=== PATIENT | female | born 1940 | race Caucasian/White ===

== ENCOUNTER 2018-07-02 11:27 | Outpatient (CLI) | payer MEDICARE, OTHER | END 2018-07-02 11:28 | disposition short-term general hospital (02) | LOC: EMS 11:27 | PROVIDERS: ATTEND Surgery | DX: R29.6 Repeated falls (principal); R41.0 Disorientation, unspecified; R53.1 Weakness | CPT/HCPCS: A0425; A0429 ==

== ENCOUNTER 2018-10-05 16:54 | Outpatient (CLI) | payer MEDICARE, OTHER | END 2018-10-05 16:55 | disposition critical access hospital (66) | LOC: EMS 16:54 | PROVIDERS: ATTEND Surgery | DX: M25.552 Pain in left hip (principal); W18.30XA Fall on same level, unspecified, initial encounter; Y93.01 Activity, walking, marching and hiking; Y92.099 Unspecified place in other non-institutional residence as the place of occurrence of the external cause | CPT/HCPCS: A0425; A0429 ==

== ENCOUNTER 2018-10-05 17:20 | Inpatient (IN) | payer MEDICARE, OTHER ==
--- NOTE | 2018-10-05 17:59 | ED Physician Documentation ---
PD HPI LOWER EXT INJURY - Stated complaint Stated Complaint: GLF - Chief complaint Chief Complaint: Ext Problem - History obtained from History obtained from: EMS - History of Present Illness PD HPI LOW EXT INJURY LOCATION: Other (This is a very demented 78-year-old woman who presents from her home after reported fall with potential left hip injury. No history is available from the patient due to dementia.) Review of Systems Unable to obtain: Dementia PD PAST MEDICAL HISTORY - Past Medical History Past Medical History: Yes Neuro: Dementia - Present Medications Home Medications: Ambulatory Orders Medication Instructions Recorded Confirmed Cholecalciferol (Vitamin D3) 1 tab ORAL DAILY 10/05/18 10/05/18 [Vitamin D3] Cilostazol [Pletal] 1 tab ORAL BID 10/05/18 10/05/18 Citalopram [CeleXA] 10 mg ORAL DAILY 10/05/18 10/05/18 Cyanocobalamin (Vitamin B-12) 1,000 mg ORAL DAILY 10/05/18 10/05/18 [Vitamin B-12] Escitalopram Oxalate [Lexapro] 1 tab ORAL DAILY 10/05/18 10/05/18 Nicotine [Nicoderm Cq] 14 mg 10/05/18 QUEtiapine [SEROquel] 25 mg ORAL DAILY 10/05/18 10/05/18 Senna [Senokot] 1 tab ORAL DAILY 10/05/18 10/05/18 risperiDONE [Risperdal] 1 tab ORAL DAILY 10/05/18 10/05/18 - Allergies Allergies/Adverse Reactions: Allergies Allergy/AdvReac Type Severity Reaction Status Date / Time aspirin Allergy Unknown Verified 10/05/18 17:43 lisinopril Allergy Unknown Verified 10/05/18 17:43 rivastigmine [From Exelon] Allergy Unknown Verified 10/05/18 17:43 PD ED PE NORMAL - Vitals Vital signs reviewed: Yes - General General: Other (She is slightly agitated, oriented to person only. She has an ecchymosis under the left eye which is several days old per the notes that accompany her.) - Neck Neck: Supple, no meningeal sign, No bony TTP - Cardiac Cardiac: RRR, No murmur - Respiratory Respiratory: No respiratory distress, Clear bilaterally - Abdomen Abdomen: Non tender - Back Back: No CVA TTP, No spinal TTP - Derm Derm: Normal color, Warm and dry - Extremities Extremities: Other (I am unable to elicit any tenderness or limited range of motion of either hip) - Psych Psych: Normal mood, Normal affect Results - Vitals Vitals: Vital Signs - 24 hr 10/05/18 17:15 Temperature 36.4 C L Heart Rate 118 H Respiratory 16 Rate Blood Pressure 172/110 H O2 Saturation 100 Oxygen O2 Source Room air - Labs Labs: Laboratory Tests 10/05/18 10/05/18 10/05/18 19:02 19:02 19:02 WBC 10.5 RBC 3.81 L Hgb 12.8 Hct 41.3 MCV 108.2 H MCH 33.4 H MCHC 30.9 L RDW 17.3 H Plt Count 163 MPV 10.2 Neut # (Auto) 8.8 H Lymph # (Auto) 0.7 L [place] # (Auto) 0.6 Eos # (Auto) 0.0 Baso # (Auto) 0.4 H Absolute Nucleated RBC 0.01 Band Neuts % (Manual) Not Reportable Abnorm Lymph % (Manual) Not Reportable Nucleated RBC % 0.1 Neutrophils # (Manual) Not Reportable Lymphocytes # (Manual) Not Reportable Monocytes # (Manual) Not Reportable Eosinophils # (Manual) Not Reportable Basophils # (Manual) Not Reportable Differential Comment MANUAL=AUTO DIFF Manual Slide Review Indicated Platelet Estimate NORMAL (130-450,000) Platelet Morphology NORMAL APPEARANCE RBC Morph Micro Appear NORMAL APPEARANCE Sodium 138 Potassium 2.5 L* Chloride 102 Carbon Dioxide 25 Anion Gap 11.0 BUN 11 Creatinine 0.5 Estimated GFR (MDRD) 119 Glucose 107 H Calcium 9.4 Magnesium Total Bilirubin 0.8 AST 30 ALT 23 Alkaline Phosphatase 76 Total Protein 7.2 Albumin 3.7 Globulin 3.5 Albumin/Globulin Ratio 1.1 Lipase 32 Blood Type A POSITIVE Antibody Screen NEGATIVE 10/05/18 19:02 WBC RBC Hgb Hct MCV MCH MCHC RDW Plt Count MPV Neut # (Auto) Lymph # (Auto) [place] # (Auto) Eos # (Auto) Baso # (Auto) Absolute Nucleated RBC Band Neuts % (Manual) Abnorm Lymph % (Manual) Nucleated RBC % Neutrophils # (Manual) Lymphocytes # (Manual) Monocytes # (Manual) Eosinophils # (Manual) Basophils # (Manual) Differential Comment Manual Slide Review Platelet Estimate Platelet Morphology RBC Morph Micro Appear Sodium Potassium Chloride Carbon Dioxide Anion Gap BUN Creatinine Estimated GFR (MDRD) Glucose Calcium Magnesium 1.9 Total Bilirubin AST ALT Alkaline Phosphatase Total Protein Albumin Globulin Albumin/Globulin Ratio Lipase Blood Type Antibody Screen - Rads (name of study) 1v chest Radiology: EMP read contemporaneously (old R rib frxs, NAD) B hips Radiology: EMP read indepedently (L femoral neck frx) Ct Head and Cspine Radiology: EMP read contemporaneously (atrophy, DJD, NAD) PD MEDICAL DECISION MAKING - ED course ED course: This is an 78-year-old woman who presents with a hip injury after a fall. Exam is pretty unimpressive, but does have a femoral neck fracture on x-ray. Case discussed by phone with Dr. Rudy Yao who plans to operate tomorrow. I updated the POA who is in [place] and he is agreeable with the plan. Spoke with the on-call hospitalist, Dr. Mayer who will admit. Departure - Departure Disposition: 66 [facility] DC/Xfer Clinical Impression: Hypokalemia, Multiple falls Fracture of femoral neck, left Qualifiers: Encounter type: initial encounter Fracture type: closed Qualified Code(s): S72.002A - Fracture of unspecified part of neck of left femur, initial encounter for closed fracture Dementia Qualifiers: Dementia type: Alzheimer's disease Alzheimer's disease onset: unspecified onset Dementia behavioral disturbance: without behavioral disturbance Qualified Code(s): G30.9 - Alzheimer's disease, unspecified Condition: Serious Discharge Date/Time: 10/05/18 21:15
[2018-10-05] MEDS ORDERED: MORPHINE 2 MG/ML CARPUJECT IVP STA (18:48)
[2018-10-05 19:27] LABS: BASOPHILS # (AUTO) 0.4 10^3/uL (0.0-0.1); BASOPHILS % (AUTO) 4.2 %; EOSINOPHILS % (AUTO) 0.3 %; HGB - HEMOGLOBIN 12.8 g/dL (12.0-16.0); LYMPHOCYTES # (AUTO) 0.7 10^3/uL (1.5-3.5); LYMPHOCYTES % (AUTO) 6.5 %; MEAN CORPUSCULAR HEMOGLOBIN 33.4 pg (27.0-31.0); MEAN CORPUSCULAR HGB CONC 30.9 g/dL (32.0-36.0); MEAN CORPUSCULAR VOLUME 108.2 fL (81.0-99.0); MEAN PLATELET VOLUME 10.2 fL (7.9-10.8); MONOCYTES # (AUTO) 0.6 10^3/uL (0.0-1.0); MONOCYTES % (AUTO) 5.9 %; NEUTROPHILS # (AUTO) 8.8 10^3/uL (1.5-6.6); NEUTROPHILS % (AUTO) 83.1 %; PLT - PLATELET COUNT 163 10^3/uL (130-450); RED BLOOD COUNT 3.81 10^6/uL (4.20-5.40); RED CELL DISTRIBUTION WIDTH 17.3 % (12.0-15.0); WHITE BLOOD COUNT 10.5 x10^3/uL (4.8-10.8)
[2018-10-05 19:30] LABS: ALBUMIN 3.7 g/dL (3.2-5.5); ALBUMIN/GLOBULIN RATIO 1.1 (1.0-2.2); BILIRUBIN,TOTAL 0.8 mg/dL (0.2-1.0); CALCIUM 9.4 mg/dL (8.5-10.3); CREATININE 0.5 mg/dL (0.4-1.0); TOTAL PROTEIN 7.2 g/dL (6.7-8.2)
[2018-10-05] MEDS ORDERED: POTASSIUM BICARB 25 MEQ TABLET PO STA (19:46)
[2018-10-05] MEDS ORDERED: POTASSIUM CHLOR 10 MEQ/100 ML 10 MEQ/100 ML BAG IV ONE (19:46)
[2018-10-05 19:54] LABS: DIFFERENTIAL COMMENT MANUAL=AUTO DIFF; PLATELET ESTIMATE, MANUAL NORMAL (130-450,000) (NORMAL); PLATELET MORPHOLOGY NORMAL APPEARANCE (NORMAL); RBC MORPHOLOGY (MULTIPLE) NORMAL APPEARANCE (NORMAL)
--- NOTE | 2018-10-05 20:02 | XRAY Report ---
Reason: preop Procedure Date: 10/05/2018 Accession Number: [id number] / [id number] Procedure: XR - Chest 1 View X-Ray CPT Code: 65953 FULL RESULT: EXAM: CHEST RADIOGRAPHY EXAM DATE: 10/05/2018 07:37 PM. CLINICAL HISTORY: Preop. COMPARISON: HIP BILAT 10/05/2018 6:24 PM. TECHNIQUE: 1 view. FINDINGS: Lungs/Pleura: No focal opacities evident. No pleural effusion. No pneumothorax. Mediastinum: Within exam limitations, the cardiomediastinal contour is normal. Other: Healing right rib fractures noted. IMPRESSION: Healing right rib fractures, otherwise unremarkable single view chest. RADIA
[2018-10-05] MEDS ORDERED: SODIUM CHLORIDE FLUSH 0.9% 10 ML SYRINGE IVP PRN (20:06)
[2018-10-05] MEDS ORDERED: ONDANSETRON 4 MG/2 ML VIAL IVP PRN (20:06)
--- NOTE | 2018-10-05 20:12 | CT Report ---
Reason: hip fracture Procedure Date: 10/05/2018 Accession Number: [id number] / [id number] Procedure: CT - HEAD WO CPT Code: FULL RESULT: EXAM: CT HEAD EXAM DATE: 10/05/2018 07:40 PM. CLINICAL HISTORY: Fall. COMPARISON: None. TECHNIQUE: Multiaxial CT images were obtained from the foramen magnum to the vertex. Reformats: Sagittal and coronal. IV contrast: None. In accordance with CT protocol optimization, one or more of the following dose reduction techniques were utilized for this exam: automated exposure control, adjustment of mA and/or KV based on patient size, or use of iterative reconstructive technique. FINDINGS: Parenchyma: No intraparenchymal hemorrhage. No evidence of mass, midline shift, or CT findings of acute infarction. Christina-white differentiation is distinct. Confluent hypoattenuation in the supratentorial white matter. Extraaxial Spaces: Mild to moderate volume loss. No subdural or epidural collections identified. Ventricles: Mildly enlarged, likely due to volume loss. Sinuses and Orbits: Imaged paranasal sinuses, orbits, and mastoids show no significant abnormality. Bones: No evidence of fracture or calvarial defect. Other: None. IMPRESSION: No acute intracranial abnormality. RADIA
--- NOTE | 2018-10-05 20:18 | HISTORY & PHYSICAL EXAMINATION ---
Chief Complaint - Chief Complaint Chief Complaint: Fell at home at ground level. History of Present Illness - Admitted From Admitted From:: Home - History Obtained From Records Reviewed: Yes History obtained from: ER and staff Exam Limitations: Yes due to her dementia - History of Present Illness HPI Comment/Other: This is a very demented 78-year-old woman who presents from her home after reported fall with potential left hip injury. No history is available from the patient due to dementia. Per record she goes to a [facility] location. Patient had Head CT and neck imaging studies that were unremarkable. Apparently there are hx of multiple falls at home. Patient was found to have hypokalemia with no cramping involved, no hx infection per POA, or other symptoms. Xrays reveal an acute left femoral neck fracture. Dr. Yao consulted for possible left femoral neck fx repair. History - Past Medical History Cardiovascular: reports: None Respiratory: reports: None Neuro: reports: Dementia Endocrine/Autoimmune: reports: None GI: reports: None IT QUALITY ASSURANCE ANALYST: reports: None : reports: None HEENT: reports: None Psych: reports: None Musculoskeletal: reports: Osteoporosis Derm: reports: None MRSA Hx?: No - POLST Patient has POLST: No Meds/Allgy - Home Medications Home Medications: Ambulatory Orders Medication Instructions Recorded Confirmed Cholecalciferol (Vitamin D3) 1 tab ORAL DAILY 10/05/18 10/05/18 [Vitamin D3] Cilostazol [Pletal] 1 tab ORAL BID 10/05/18 10/05/18 Citalopram [CeleXA] 10 mg ORAL DAILY 10/05/18 10/05/18 Cyanocobalamin (Vitamin B-12) 1,000 mg ORAL DAILY 10/05/18 10/05/18 [Vitamin B-12] Escitalopram Oxalate [Lexapro] 1 tab ORAL DAILY 10/05/18 10/05/18 Nicotine [Nicoderm Cq] 14 mg 10/05/18 QUEtiapine [SEROquel] 25 mg ORAL DAILY 10/05/18 10/05/18 Senna [Senokot] 1 tab ORAL DAILY 10/05/18 10/05/18 risperiDONE [Risperdal] 1 tab ORAL DAILY 10/05/18 10/05/18 - Allergies Allergies/Adverse Reactions: Allergies Allergy/AdvReac Type Severity Reaction Status Date / Time aspirin Allergy Unknown Verified 10/05/18 17:43 lisinopril Allergy Unknown Verified 10/05/18 17:43 rivastigmine [From Exelon] Allergy Unknown Verified 10/05/18 17:43 Review of Systems - Constitutional Constitutional: reports: Other (severe dementia limited ROS) Prior Level of Functionality: Unknown due to her severe dementia but apparently was ambulating but had multiple falls in past Exam - Vital Signs Vital Signs: Vital Signs x48h Temp Pulse Resp BP Pulse Ox 10/05/18 17:15 36.4 C L 118 H 16 172/110 H 100 - Physical Exam General Appearance: positive: No acute distress, Anxious, Other (demented) Eyes Bilateral: positive: Normal inspection, PERRL, EOMI, Other (left periorbital ecchymosis) ENT: positive: No signs of dehydration Neck: positive: Nml inspection, Thyroid nml, No JVD, Trachea midline. negative: Thyromegaly, Carotid bruit, Swelling/bruising Respiratory: positive: Chest non-tender, No respiratory distress, Breath sounds nml Cardiovascular: positive: Regular rate & rhythm, No gallop, Systolic murmur. negative: Irregularly irregular, PMI displaced laterally, JVD present, Gallop/S3 (crescendo/decrescendo type murmur heard), Gallop/S4, Friction rub Peripheral Pulses: positive: 2+ Abdomen: positive: Non-tender, No organomegaly, Nml bowel sounds, No distention. negative: Tenderness Back: positive: Nml inspection Skin: positive: Color nml, No rash, Warm, Other Extremities: positive: Non-tender, Full ROM, Nml appearance. negative: Pedal edema Neurologic/Psychiatric: positive: Mood/affect nml, Disoriented to person, Disoriented to time. negative: Slurred/abnml speech Conclusion/Plan - Problem List (1) Fracture of femoral neck, left Conclusion/Plan: Admit to med/surg, place on npo, Dr Yao to consult for possible ORIF. Low PURCELL Perioperative risk score of a partially dependent 78 y/o w/o significant systemic disease. 0.1% FERNANDEZ risk. Similarly, patients preoperative mortality predicator score is 0.1% risk for perioperative mortality. Pain control, bed rest for now. Qualifiers: Encounter type: initial encounter Fracture type: closed Qualified Code(s): S72.002A - Fracture of unspecified part of neck of left femur, initial encounter for closed fracture (2) Multiple falls Conclusion/Plan: Will likely need eval on etiology. Unclear if gait/balance issue w/ coexisting osteoporosis may play factor in this. PT/OT to assess, post-operatively. Has risk of falls. (3) Dementia Conclusion/Plan: No behavioral disturbance per report. Hold Exelon for now. Would restart post-operatively. Qualifiers: Dementia type: Alzheimer's disease Alzheimer's disease onset: unspecified onset Dementia behavioral disturbance: without behavioral disturbance Qualified Code(s): G30.9 - Alzheimer's disease, unspecified; F02.80 - Dementia in other diseases classified elsewhere without behavioral disturbance (4) Osteoporosis Conclusion/Plan: Check Vitamin D level, ionized calcium, replace as needed. May need bisphosphonates. Osteoporosis consult. Qualifiers: Osteoporosis type: unspecified Presence of current pathological fracture: with current pathological fracture Encounter type: initial encounter Qualified Code(s): M80.00XA - Age-related osteoporosis with current pathological fracture, unspecified site, initial encounter for fracture (5) Hypokalemia Conclusion/Plan: Will replace in ED with PO/IV. Would check Mag and replace as needed. Currently on IVF's with KCL. (6) Pre-op evaluation Conclusion/Plan: PURCELL Perioperative risk score of a partially dependent 78 y/o w/o significant systemic disease. 0.1% FERNANDEZ risk. Similarly, patients preoperative mortality predicator score is 0.1% risk for perioperative mortality. (7) Hypertensive urgency Conclusion/Plan: Pain driven likely. Would treat with IV hydralazine prn to covert for BP excursions. - Lab Results Lab results reviewed: Yes Fish Bones: 10/05/18 19:02 10/05/18 19:02 - Diagnostic Imaging Results Diagnostic Imaging Results: positive: Final report reviewed - EKG Results EKG Interpreted Independently: No Core Measures - Anticipated LOS I expect patient to be DC'd or transferred within 96 hours.: Yes - Issues Hospital Issues and Management Plan: Severe dementia w/o behavioral disturbance. Pain control, IVF's, and electrolyte repletion, likely will need post-op rehab to SNF vs TCU - DVT/VTE - Prophylaxis VTE/DVT Device ordered at admit?: No Not Ordered - Medical Reason: Not indicated VTE/DVT Prophylaxis med ordered at admit?: Yes - Stroke - Rehab Assessment Rehab services assessment to be ordered?: No Not Ordered - Medical Reason: Not indicated - AMI - Statin at Admit Aspirin Prescribed on Admit: No Not Ordered - Medical Reason: Discontinued (Due to NPO and surgery in am)
--- NOTE | 2018-10-05 20:27 | CT Report ---
Reason: hip fracture Procedure Date: 10/05/2018 Accession Number: [id number] / [id number] Procedure: CT - CERVICAL SPINE WO CPT Code: FULL RESULT: EXAM: CT CERVICAL SPINE WITHOUT CONTRAST DATE: 10/05/2018 07:40 PM. HISTORY: Fall. COMPARISONS: None. TECHNIQUE: Thin-section axial images were acquired of the cervical spine without contrast. Post-processing: Coronal and sagittal reformats. Other: None. In accordance with CT protocol optimization, one or more of the following dose reduction techniques were utilized for this exam: automated exposure control, adjustment of mA and/or KV based on patient size, or use of iterative reconstructive technique. FINDINGS: Alignment: No scoliosis or spondylolisthesis. Bones: No acute fracture. Interspace Levels/Facets: Multilevel moderate to severe facet arthrosis. Moderate lower cervical disk degeneration. Other: The paravertebral and prevertebral soft tissues are unremarkable. There is emphysema at the lung apices. IMPRESSION: No acute fracture. RADIA
[2018-10-05] MEDS ORDERED: FAMOTIDINE 20 MG/50 ML 50 ML IV SCH (21:00)
[2018-10-05 21:10] LABS: INR 1.2 (0.8-1.2); PT - PROTHROMBIN TIME 13.7 secs (9.9-12.6)
[2018-10-05] MEDS: MORPHINE 2 MG/ML CARPUJECT IVP PRN (21:26)
[2018-10-05] MEDS: D5.45NS W/20 MEQ KCL 1,000 ML IV SCH (21:26)
[2018-10-05] MEDS ORDERED: hydrALAZINE INJ 20 MG/ML VIAL IVP PRN (21:29)
[2018-10-05] MEDS ORDERED: METOPROLOL 5 MG/5 ML VIAL IVP PRN (21:30)
[2018-10-05] MEDS: ACETAMINOPHEN 1,000 MG/100 ML 100 ML IV PRN (22:20)
[2018-10-06] MEDS: SODIUM CHLORIDE FLUSH 0.9% 10 ML SYRINGE IVP SCH ×3 (00:29→18:09)
[2018-10-06 05:02] LABS: BASOPHILS % (AUTO) 0.7 %; HGB - HEMOGLOBIN 11.6 g/dL (12.0-16.0); LYMPHOCYTES # (AUTO) 0.8 10^3/uL (1.5-3.5); LYMPHOCYTES % (AUTO) 11.4 %; MEAN CORPUSCULAR HEMOGLOBIN 33.3 pg (27.0-31.0); MEAN CORPUSCULAR HGB CONC 33.7 g/dL (32.0-36.0); MEAN CORPUSCULAR VOLUME 98.6 fL (81.0-99.0); MEAN PLATELET VOLUME 9.4 fL (7.9-10.8); MONOCYTES # (AUTO) 0.6 10^3/uL (0.0-1.0); MONOCYTES % (AUTO) 8.9 %; NEUTROPHILS # (AUTO) 5.3 10^3/uL (1.5-6.6); PLT - PLATELET COUNT 142 10^3/uL (130-450); RED BLOOD COUNT 3.49 10^6/uL (4.20-5.40); RED CELL DISTRIBUTION WIDTH 16.2 % (12.0-15.0); WHITE BLOOD COUNT 6.7 x10^3/uL (4.8-10.8)
[2018-10-06 05:07] LABS: ALBUMIN 3.1 g/dL (3.2-5.5); CREATININE 0.5 mg/dL (0.4-1.0); PHOSPHORUS 3.3 mg/dL (2.5-4.6)
--- NOTE | 2018-10-06 06:38 | XRAY Report ---
Reason: poss hip inj, fall Procedure Date: 10/05/2018 Accession Number: [id number] / [id number] Procedure: XR - Hips 2V BILAT CPT Code: FULL RESULT: EXAM: BILATERAL HIP RADIOGRAPHY EXAM DATE: 10/05/2018 06:39 PM. CLINICAL HISTORY: Poss hip inj, fall. COMPARISON: None. TECHNIQUE: 2 views each. Frontal view of the right hip limited by motion. FINDINGS: Bones: Left femoral neck fracture. Minimal displacement. No definite right femoral fracture. Right Hip: Mild osteoarthritis. Left Hip: Mild osteoarthritis. Soft Tissues: Normal. No soft tissue swelling. IMPRESSION: Minimally displaced left femoral neck fracture. No definite right hip fracture, but the frontal film is limited by motion. RADIA
[2018-10-06] MEDS: ACETAMINOPHEN 1,000 MG/100 ML 100 ML IV PRN ×2 (06:47→12:07)
[2018-10-06] MEDS: D5.45NS W/20 MEQ KCL 1,000 ML IV SCH (06:50)
[2018-10-06] MEDS: POLYETHYLENE GLYCOL 3350 17 GM PACKET PO SCH (08:55)
[2018-10-06] MEDS ORDERED: ENOXAPARIN 40 MG/0.4 ML SYRINGE SUBQ SCH (09:00)
[2018-10-06] MEDS ORDERED: FAMOTIDINE 20 MG/50 ML 50 ML IV SCH (09:00)
--- NOTE | 2018-10-06 09:06 | PROVIDER PROGRESS NOTE ---
Subjective - Prog Note Date Prog Note Date: 10/06/18 Prog Note Time: 09:04 - Subjective Pt reports feeling: No change (Patient apparently had a GLF yesterday, sustaining a left subcapital hip fracture. No prior fracture. No other injury. Had been a household ambulator prior to the accident. Is pleasantly demented) Objective - Vital Signs/Intake & Output Vital Signs: Vital Signs x48h Temp Pulse Pulse Resp BP BP Pulse Ox 10/06/18 06:45 36.9 C 99 18 120/69 98 10/06/18 03:54 37.1 C 97 16 115/51 L 97 10/06/18 02:39 36.9 C 107 H 16 97 10/06/18 01:20 107 H 111/53 L 10/06/18 01:09 102/54 L 10/06/18 01:05 116 H 162/85 H Intake & Output: Intake & Output 10/03/18 10/04/18 10/05/18 10/06/18 23:59 23:59 23:59 23:59 Intake Total 200 1040 Output Total 45 350 Balance 155 690 - Lab Results Fish Bones: 10/06/18 04:30 10/06/18 04:30 Other Labs: Lab Results x24hrs 10/06/18 10/06/18 10/05/18 Range/Units 04:30 04:30 20:41 WBC 6.7 (4.8-10.8) x10^3/uL RBC 3.49 L (4.20-5.40) 10^6/uL Hgb 11.6 L (12.0-16.0) g/dL Hct 34.5 L (37.0-47.0) % MCV 98.6 (81.0-99.0) fL MCH 33.3 H (27.0-31.0) pg MCHC 33.7 (32.0-36.0) g/dL RDW 16.2 H (12.0-15.0) % Plt Count 142 (130-450) 10^3/uL MPV 9.4 (7.9-10.8) fL Neut # (Auto) 5.3 (1.5-6.6) 10^3/uL Lymph # (Auto) 0.8 L (1.5-3.5) 10^3/uL [place] # (Auto) 0.6 (0.0-1.0) 10^3/uL Eos # (Auto) 0.0 (0.0-0.7) 10^3/uL Baso # (Auto) 0.0 (0.0-0.1) 10^3/uL Absolute Nucleated RBC 0.01 x10^3/uL Band Neuts % (Manual) Abnorm Lymph % (Manual) Nucleated RBC % 0.1 /100WBC Neutrophils # (Manual) Lymphocytes # (Manual) Monocytes # (Manual) Eosinophils # (Manual) Basophils # (Manual) Differential Comment Manual Slide Review Platelet Estimate (NORMAL) Platelet Morphology (NORMAL) RBC Morph Micro Appear (NORMAL) PT (9.9-12.6) secs INR (0.8-1.2) Sodium 142 (135-145) mmol/L Potassium 3.3 L (3.5-5.0) mmol/L Chloride 108 (101-111) mmol/L Carbon Dioxide 26 (21-32) mmol/L Anion Gap 8.0 (6-13) BUN 11 (6-20) mg/dL Creatinine 0.5 (0.4-1.0) mg/dL Estimated GFR (MDRD) 119 (>89) Glucose 147 H (70-100) mg/dL Calcium 9.0 (8.5-10.3) mg/dL Phosphorus 3.3 (2.5-4.6) mg/dL Magnesium (1.7-2.8) mg/dL Total Bilirubin (0.2-1.0) mg/dL AST (10-42) IU/L ALT (10-60) IU/L Alkaline Phosphatase (42-121) IU/L Total Protein (6.7-8.2) g/dL Albumin 3.1 L (3.2-5.5) g/dL Globulin (2.1-4.2) g/dL Albumin/Globulin Ratio (1.0-2.2) Lipase (22-51) U/L Blood Type Blood Type Recheck A POSITIVE Antibody Screen 10/05/18 10/05/18 10/05/18 Range/Units 20:41 19:02 19:02 WBC (4.8-10.8) x10^3/uL RBC (4.20-5.40) 10^6/uL Hgb (12.0-16.0) g/dL Hct (37.0-47.0) % MCV (81.0-99.0) fL MCH (27.0-31.0) pg MCHC (32.0-36.0) g/dL RDW (12.0-15.0) % Plt Count (130-450) 10^3/uL MPV (7.9-10.8) fL Neut # (Auto) (1.5-6.6) 10^3/uL Lymph # (Auto) (1.5-3.5) 10^3/uL [place] # (Auto) (0.0-1.0) 10^3/uL Eos # (Auto) (0.0-0.7) 10^3/uL Baso # (Auto) (0.0-0.1) 10^3/uL Absolute Nucleated RBC x10^3/uL Band Neuts % (Manual) Abnorm Lymph % (Manual) Nucleated RBC % /100WBC Neutrophils # (Manual) Lymphocytes # (Manual) Monocytes # (Manual) Eosinophils # (Manual) Basophils # (Manual) Differential Comment Manual Slide Review Platelet Estimate (NORMAL) Platelet Morphology (NORMAL) RBC Morph Micro Appear (NORMAL) PT 13.7 H (9.9-12.6) secs INR 1.2 (0.8-1.2) Sodium (135-145) mmol/L Potassium (3.5-5.0) mmol/L Chloride (101-111) mmol/L Carbon Dioxide (21-32) mmol/L Anion Gap (6-13) BUN (6-20) mg/dL Creatinine (0.4-1.0) mg/dL Estimated GFR (MDRD) (>89) Glucose (70-100) mg/dL Calcium (8.5-10.3) mg/dL Phosphorus (2.5-4.6) mg/dL Magnesium 1.9 (1.7-2.8) mg/dL Total Bilirubin (0.2-1.0) mg/dL AST (10-42) IU/L ALT (10-60) IU/L Alkaline Phosphatase (42-121) IU/L Total Protein (6.7-8.2) g/dL Albumin (3.2-5.5) g/dL Globulin (2.1-4.2) g/dL Albumin/Globulin Ratio (1.0-2.2) Lipase (22-51) U/L Blood Type A POSITIVE Blood Type Recheck Antibody Screen NEGATIVE 10/05/18 10/05/18 Range/Units 19:02 19:02 WBC 10.5 (4.8-10.8) x10^3/uL RBC 3.81 L (4.20-5.40) 10^6/uL Hgb 12.8 (12.0-16.0) g/dL Hct 41.3 (37.0-47.0) % MCV 108.2 H (81.0-99.0) fL MCH 33.4 H (27.0-31.0) pg MCHC 30.9 L (32.0-36.0) g/dL RDW 17.3 H (12.0-15.0) % Plt Count 163 (130-450) 10^3/uL MPV 10.2 (7.9-10.8) fL Neut # (Auto) 8.8 H (1.5-6.6) 10^3/uL Lymph # (Auto) 0.7 L (1.5-3.5) 10^3/uL [place] # (Auto) 0.6 (0.0-1.0) 10^3/uL Eos # (Auto) 0.0 (0.0-0.7) 10^3/uL Baso # (Auto) 0.4 H (0.0-0.1) 10^3/uL Absolute Nucleated RBC 0.01 x10^3/uL Band Neuts % (Manual) Not Reportable Abnorm Lymph % (Manual) Not Reportable Nucleated RBC % 0.1 /100WBC Neutrophils # (Manual) Not Reportable Lymphocytes # (Manual) Not Reportable Monocytes # (Manual) Not Reportable Eosinophils # (Manual) Not Reportable Basophils # (Manual) Not Reportable Differential Comment MANUAL=AUTO DIFF Manual Slide Review Indicated Platelet Estimate NORMAL (130-450,000) (NORMAL) Platelet Morphology NORMAL APPEARANCE (NORMAL) RBC Morph Micro Appear NORMAL APPEARANCE (NORMAL) PT (9.9-12.6) secs INR (0.8-1.2) Sodium 138 (135-145) mmol/L Potassium 2.5 L* (3.5-5.0) mmol/L Chloride 102 (101-111) mmol/L Carbon Dioxide 25 (21-32) mmol/L Anion Gap 11.0 (6-13) BUN 11 (6-20) mg/dL Creatinine 0.5 (0.4-1.0) mg/dL Estimated GFR (MDRD) 119 (>89) Glucose 107 H (70-100) mg/dL Calcium 9.4 (8.5-10.3) mg/dL Phosphorus (2.5-4.6) mg/dL Magnesium (1.7-2.8) mg/dL Total Bilirubin 0.8 (0.2-1.0) mg/dL AST 30 (10-42) IU/L ALT 23 (10-60) IU/L Alkaline Phosphatase 76 (42-121) IU/L Total Protein 7.2 (6.7-8.2) g/dL Albumin 3.7 (3.2-5.5) g/dL Globulin 3.5 (2.1-4.2) g/dL Albumin/Globulin Ratio 1.1 (1.0-2.2) Lipase 32 (22-51) U/L Blood Type Blood Type Recheck Antibody Screen - Diagnostic Imaging Diagnostic Imaging Comments: XR: shows a minimally displaced left subcapital hip fracture - Other Results/Comments Other Results/Comments: EXAM: Left hip has painful motion. Sensation intact. Moves toes well. Good cap filling Assessment/Plan - Problem List (1) Fracture of femoral neck, left Impression: Closed, minimally displaced left subcapital hip fracture PLAN: To OR later today for multiple cannulated screw fixation of her hip fracture. Discussed the dx and treatment options with patient and her POA. Risks discussed and questions answered. Consent signed over the phone with POA. Leg marked Qualifiers: Encounter type: initial encounter Fracture type: closed Qualified Code(s): S72.002A - Fracture of unspecified part of neck of left femur, initial encounter for closed fracture
[2018-10-06] MEDS ORDERED: ceFAZolin 2 GM/50 ML 2 GM/50 ML BAG IV SCH (09:15)
[2018-10-06] MEDS: MORPHINE 2 MG/ML CARPUJECT IVP PRN ×3 (09:36→11:34)
--- NOTE | 2018-10-06 09:53 | CONSULTATION NOTE ---
DATE OF SERVICE: 10/06/2018 Physician: Rudy Yao MD REFERRING PHYSICIAN: Dr. Jerzy Schrader of the emergency room department. HISTORY OF PRESENT ILLNESS: The patient is a pleasantly demented 78-year-old female who ap parently had a fall yesterday, landing on her left side. Had some pain in the hip and was unable to stand or weight-bear. Was taken to the emergency room here at [facility], where x-rays showed a minimally displaced left subcapital hip fracture. She was admitted to the medical service for medical evaluation, as well as for medical preoperative clearance. No prior hip fracture is note d. No other apparent injuries. PHYSICAL EXAMINATION: Examination shows a pleasantly demented, elderly woman lying in the bed, in a mild amount of pain. Her left hip is minimally swollen. Minimal deformity appreciated. M inimal tenderness noted on palpation. Some pain with hip range of motion noted. She moves her toes well. Sensation appeared to be intact. Good capillary filling noted. X-RAYS: X-rays show a very minimally displaced subcapital left hip fracture. ASSESSMENT 1. Closed minimally displaced left subcapital hip fracture. 2. Dementia. PLAN: I have discussed with the patient her diagnosis and treatment options. I also spoke with her power of city attorney about options as well. I answered all their questions. They wished to proceed wit h surgery later today. We will plan on multiple cannulated screw fixation of her hip fracture. Anti cipate her being able to get up and weight-bear as tolerated, with ambulation postoperatively. Becau se of her dementia, I will likely keep her in a knee immobilizer on this left side to minimize her un observed activities out of bed, and premature ambulation without observation to minimize any postoper ative accidents. The risks and benefits of surgery were explained, including anesthesia risks, malun ion, nonunion, hardware failure, infection, blood loss, blood clots, etc. The POA appears to underst and these risks, and wishes still to proceed with surgery as planned. The leg was marked. Consent w as signed through telephone, observation with the patient's nurse. TD: 10/06/2018 09:38
--- NOTE | 2018-10-06 11:48 | PROVIDER PROGRESS NOTE ---
Subjective - Prog Note Date Prog Note Date: 10/06/18 Prog Note Time: 11:46 (seen ~ 8am) - Subjective Subjective: " I broke my hip? " very surprised to know this Current Medications - Current Medications Current Medications: Active Medications Enoxaparin Sodium (Lovenox) 40 mg SUBQ DAILY [facility] Last Admin: 10/06/18 08:55 Dose: Not Given Hydralazine HCl (Apresoline Inj) 20 mg IVP Q4HR PRN PRN Reason: SBP>180 or DBP>110 Last Admin: 10/06/18 00:39 Dose: 20 mg Potassium Chloride/Dextrose/Sod Cl (D5.45ns W/20 Meq Kcl) 1,000 mls @ 100 mls/hr IV .Q10H [facility] Last Admin: 10/06/18 06:50 Dose: 100 mls/hr Acetaminophen (Ofirmev) 100 mls @ 400 mls/hr IV Q6HR PRN PRN Reason: Pain or T>100.4 Last Infusion: 10/06/18 07:29 Dose: Infused Cefazolin Sodium/Dextrose (Ancef 2 Gm/50 Ml) 2 gm in 50 mls @ 100 mls/hr IV ONCE [facility] Stop: 10/06/18 13:00 Morphine Sulfate (Morphine (Carpuject)) 1 mg IVP Q2HR PRN PRN Reason: PAIN Last Admin: 10/06/18 11:34 Dose: 1 mg Ondansetron HCl (Zofran Inj) 4 mg IVP Q6HR PRN PRN Reason: Nausea / Vomiting Polyethylene Glycol (Miralax) 17 gm PO DAILY [facility] Last Admin: 10/06/18 08:55 Dose: Not Given Sodium Chloride (Normal Saline Flush 0.9%) 10 ml IVP PRN PRN PRN Reason: NEEDED PER PROVIDER ORDERS Sodium Chloride (Normal Saline Flush 0.9%) 10 ml IVP 0100,0900,1700 [facility] Last Admin: 10/06/18 08:55 Dose: Not Given Cholecalciferol (Vitamin D3) [Vitamin D3] 1 tab ORAL DAILY 10/05/18 Cilostazol [Pletal] 1 tab ORAL BID 10/05/18 Citalopram [CeleXA] 10 mg ORAL DAILY 10/05/18 Cyanocobalamin (Vitamin B-12) [Vitamin B-12] 1,000 mg ORAL DAILY 10/05/18 Escitalopram Oxalate [Lexapro] 1 tab ORAL DAILY 10/05/18 Nicotine [Nicoderm Cq] 14 mg 10/05/18 QUEtiapine [SEROquel] 25 mg ORAL DAILY 10/05/18 Senna [Senokot] 1 tab ORAL DAILY 10/05/18 risperiDONE [Risperdal] 1 tab ORAL DAILY 10/05/18 Objective - Vital Signs/Intake & Output Reviewed Vital Signs: Yes Vital Signs: Vital Signs x48h Temp Pulse Resp BP Pulse Ox 10/06/18 06:45 36.9 C 99 18 120/69 98 10/06/18 03:54 37.1 C 97 16 115/51 L 97 Intake & Output: Intake & Output 10/03/18 10/04/18 10/05/18 10/06/18 23:59 23:59 23:59 23:59 Intake Total 200 1090 Output Total 45 350 Balance 155 740 - Objective General Appearance: positive: No acute distress, Other (lying on side in bed, curled up, does not appear in pain, alert, awake, NOT oriented to place ,situation , or time) Eyes Bilateral: positive: Other (Ecchymochis around left orbit) Respiratory: positive: No respiratory distress, Breath sounds nml Cardiovascular: positive: Regular rate & rhythm, Systolic murmur (3/6 harsh, midpeaking murmur) Abdomen: positive: Nml bowel sounds, No distention. negative: Tenderness Skin: positive: Warm, Dry Extremities: positive: Other (lying curled on side, unable to evaluate for shortening of left (affected side), no evident swelling or ecchymosis). negative: Pedal edema Neurologic/Psychiatric: positive: Disoriented to person, Disoriented to place, Disoriented to time - Lab Results Fish Bones: 10/06/18 04:30 10/06/18 04:30 Other Labs: Lab Results x24hrs 10/06/18 10/06/18 10/05/18 Range/Units 04:30 04:30 20:41 WBC 6.7 (4.8-10.8) x10^3/uL RBC 3.49 L (4.20-5.40) 10^6/uL Hgb 11.6 L (12.0-16.0) g/dL Hct 34.5 L (37.0-47.0) % MCV 98.6 (81.0-99.0) fL MCH 33.3 H (27.0-31.0) pg MCHC 33.7 (32.0-36.0) g/dL RDW 16.2 H (12.0-15.0) % Plt Count 142 (130-450) 10^3/uL MPV 9.4 (7.9-10.8) fL Neut # (Auto) 5.3 (1.5-6.6) 10^3/uL Lymph # (Auto) 0.8 L (1.5-3.5) 10^3/uL [place] # (Auto) 0.6 (0.0-1.0) 10^3/uL Eos # (Auto) 0.0 (0.0-0.7) 10^3/uL Baso # (Auto) 0.0 (0.0-0.1) 10^3/uL Absolute Nucleated RBC 0.01 x10^3/uL Band Neuts % (Manual) Abnorm Lymph % (Manual) Nucleated RBC % 0.1 /100WBC Neutrophils # (Manual) Lymphocytes # (Manual) Monocytes # (Manual) Eosinophils # (Manual) Basophils # (Manual) Differential Comment Manual Slide Review Platelet Estimate (NORMAL) Platelet Morphology (NORMAL) RBC Morph Micro Appear (NORMAL) PT (9.9-12.6) secs INR (0.8-1.2) Sodium 142 (135-145) mmol/L Potassium 3.3 L (3.5-5.0) mmol/L Chloride 108 (101-111) mmol/L Carbon Dioxide 26 (21-32) mmol/L Anion Gap 8.0 (6-13) BUN 11 (6-20) mg/dL Creatinine 0.5 (0.4-1.0) mg/dL Estimated GFR (MDRD) 119 (>89) Glucose 147 H (70-100) mg/dL Calcium 9.0 (8.5-10.3) mg/dL Phosphorus 3.3 (2.5-4.6) mg/dL Magnesium (1.7-2.8) mg/dL Total Bilirubin (0.2-1.0) mg/dL AST (10-42) IU/L ALT (10-60) IU/L Alkaline Phosphatase (42-121) IU/L Total Protein (6.7-8.2) g/dL Albumin 3.1 L (3.2-5.5) g/dL Globulin (2.1-4.2) g/dL Albumin/Globulin Ratio (1.0-2.2) Lipase (22-51) U/L Blood Type Blood Type Recheck A POSITIVE Antibody Screen 10/05/18 10/05/18 10/05/18 Range/Units 20:41 19:02 19:02 WBC (4.8-10.8) x10^3/uL RBC (4.20-5.40) 10^6/uL Hgb (12.0-16.0) g/dL Hct (37.0-47.0) % MCV (81.0-99.0) fL MCH (27.0-31.0) pg MCHC (32.0-36.0) g/dL RDW (12.0-15.0) % Plt Count (130-450) 10^3/uL MPV (7.9-10.8) fL Neut # (Auto) (1.5-6.6) 10^3/uL Lymph # (Auto) (1.5-3.5) 10^3/uL [place] # (Auto) (0.0-1.0) 10^3/uL Eos # (Auto) (0.0-0.7) 10^3/uL Baso # (Auto) (0.0-0.1) 10^3/uL Absolute Nucleated RBC x10^3/uL Band Neuts % (Manual) Abnorm Lymph % (Manual) Nucleated RBC % /100WBC Neutrophils # (Manual) Lymphocytes # (Manual) Monocytes # (Manual) Eosinophils # (Manual) Basophils # (Manual) Differential Comment Manual Slide Review Platelet Estimate (NORMAL) Platelet Morphology (NORMAL) RBC Morph Micro Appear (NORMAL) PT 13.7 H (9.9-12.6) secs INR 1.2 (0.8-1.2) Sodium (135-145) mmol/L Potassium (3.5-5.0) mmol/L Chloride (101-111) mmol/L Carbon Dioxide (21-32) mmol/L Anion Gap (6-13) BUN (6-20) mg/dL Creatinine (0.4-1.0) mg/dL Estimated GFR (MDRD) (>89) Glucose (70-100) mg/dL Calcium (8.5-10.3) mg/dL Phosphorus (2.5-4.6) mg/dL Magnesium 1.9 (1.7-2.8) mg/dL Total Bilirubin (0.2-1.0) mg/dL AST (10-42) IU/L ALT (10-60) IU/L Alkaline Phosphatase (42-121) IU/L Total Protein (6.7-8.2) g/dL Albumin (3.2-5.5) g/dL Globulin (2.1-4.2) g/dL Albumin/Globulin Ratio (1.0-2.2) Lipase (22-51) U/L Blood Type A POSITIVE Blood Type Recheck Antibody Screen NEGATIVE 10/05/18 10/05/18 Range/Units 19:02 19:02 WBC 10.5 (4.8-10.8) x10^3/uL RBC 3.81 L (4.20-5.40) 10^6/uL Hgb 12.8 (12.0-16.0) g/dL Hct 41.3 (37.0-47.0) % MCV 108.2 H (81.0-99.0) fL MCH 33.4 H (27.0-31.0) pg MCHC 30.9 L (32.0-36.0) g/dL RDW 17.3 H (12.0-15.0) % Plt Count 163 (130-450) 10^3/uL MPV 10.2 (7.9-10.8) fL Neut # (Auto) 8.8 H (1.5-6.6) 10^3/uL Lymph # (Auto) 0.7 L (1.5-3.5) 10^3/uL [place] # (Auto) 0.6 (0.0-1.0) 10^3/uL Eos # (Auto) 0.0 (0.0-0.7) 10^3/uL Baso # (Auto) 0.4 H (0.0-0.1) 10^3/uL Absolute Nucleated RBC 0.01 x10^3/uL Band Neuts % (Manual) Not Reportable Abnorm Lymph % (Manual) Not Reportable Nucleated RBC % 0.1 /100WBC Neutrophils # (Manual) Not Reportable Lymphocytes # (Manual) Not Reportable Monocytes # (Manual) Not Reportable Eosinophils # (Manual) Not Reportable Basophils # (Manual) Not Reportable Differential Comment MANUAL=AUTO DIFF Manual Slide Review Indicated Platelet Estimate NORMAL (130-450,000) (NORMAL) Platelet Morphology NORMAL APPEARANCE (NORMAL) RBC Morph Micro Appear NORMAL APPEARANCE (NORMAL) PT (9.9-12.6) secs INR (0.8-1.2) Sodium 138 (135-145) mmol/L Potassium 2.5 L* (3.5-5.0) mmol/L Chloride 102 (101-111) mmol/L Carbon Dioxide 25 (21-32) mmol/L Anion Gap 11.0 (6-13) BUN 11 (6-20) mg/dL Creatinine 0.5 (0.4-1.0) mg/dL Estimated GFR (MDRD) 119 (>89) Glucose 107 H (70-100) mg/dL Calcium 9.4 (8.5-10.3) mg/dL Phosphorus (2.5-4.6) mg/dL Magnesium (1.7-2.8) mg/dL Total Bilirubin 0.8 (0.2-1.0) mg/dL AST 30 (10-42) IU/L ALT 23 (10-60) IU/L Alkaline Phosphatase 76 (42-121) IU/L Total Protein 7.2 (6.7-8.2) g/dL Albumin 3.7 (3.2-5.5) g/dL Globulin 3.5 (2.1-4.2) g/dL Albumin/Globulin Ratio 1.1 (1.0-2.2) Lipase 32 (22-51) U/L Blood Type Blood Type Recheck Antibody Screen Assessment/Plan - Problem List (1) Fracture of femoral neck, left Impression: 1) Fracture of femoral neck, left Conclusion/Plan: s/p Fall For surgical repair today/ Dr Najma PURCELL Perioperative risk score of a partially dependent 78 y/o w/o significant systemic disease. 0.1% FERNANDEZ risk. Similarly, patients preoperative mortality predicator score is 0.1% risk for perioperative mortality. Pain control, bed rest for now. given murmur, ? if this is will get echocardiogram preop(have informed anesthesia) Addendum; Patient tolerated Cannulated screw fixation L hip fracture under General anesthesia EBL 50 cc 1000 colloid 2) Pre-op evaluation (done at time of H/P Conclusion/Plan: PURCELL Perioperative risk score of a partially dependent 78 y/o w/o significant systemic disease. 0.1% FERNANDEZ risk. Similarly, patients preoperative mortality predicator score is 0.1% risk for perioperative mortality. As above have discussed murmur w / anesthesia, will try to get echo before surgery (? ) See below 3) Systolic murmur As above ? could this be , ? could falls be related to near syncope >>>>>Addendum; Echo shows moderate to Severe , mean pressure gradient 38 mmHg, aortic AoVarea 1.0cm squared anesthesia informed Will be cautious w/ volume, no acute lowering of BP, no peripheral vasodilating agents 4) Multiple falls Conclusion/Plan: ? Mechanical Fall balance/gait issue, ? impaired judgement ? could this be related to near syncope with (IF the murmur is ) checking echocardiogram as have no records of thsi murmur. PT/OT eval post op. (5) Osteoporosis Conclusion/Plan: Check Vitamin D level, ionized calcium, replace as needed. May need bisphosphonates. Osteoporosis consult. Qualifiers: (4) Dementia Conclusion/Plan: No behavioral disturbance per report. Rivastigmine (exelon on hold);? resume post op Pharmacy has reconciled meds in d/w family; is on risperidone 0.5 mg daily in am, and quetiapine 25 mg po q pm Qualifiers: (5) Hypokalemia Conclusion/Plan: Unclear cause , not on thiazide or other diuretic repelted in ED with PO/IV. 2.5>> 3.3 will continue daily PO K and recehck in am. (7) Hypertension Conclusion/Plan: NOt on antihyertensives on admission, on presentation most c/w pain due to acute injury Had resolved w analgesia pre op 160/87 now Noindication for acute lowering/ recommendations are to not lower acutely in setting of no end organ damage (risk outweights benefit of acutely or overly lowering bhavik w/ new info on from echo) No indication to start beta amie perioperatively (and beta amie recommendations perio are to NOT start immediately periop >> D/c prn hydralazine and prn metoprolol iv GI prophylaxis; no indication in this patient d/c pepcid Qualifiers: Encounter type: initial encounter Fracture type: closed Qualified Code(s): S72.002A - Fracture of unspecified part of neck of left femur, initial encounter for closed fracture
--- NOTE | 2018-10-06 12:36 | ANESTHESIA ---
Pre-Anesthesia VS, & Labs - Diagnosis left hip fracture - Procedure left hip ORIF, cannulated screws Vital Signs: Temp Pulse Resp BP Pulse Ox 36.9 C 99 18 120/69 98 10/06/18 06:45 10/06/18 06:45 10/06/18 06:45 10/06/18 06:45 10/06/18 06:45 Height 5 ft Weight (kg) 45.35 kg Body Mass Index 19.5 - Is Patient ?: No - Lab Results Current Lab Results: Laboratory Tests 10/06/18 04:30: Sodium 142, Potassium 3.3 L, Chloride 108, Carbon Dioxide 26, Anion Gap 8.0, BUN 11, Creatinine 0.5, Estimated GFR (MDRD) 119, Glucose 147 H, Calcium 9.0, Phosphorus 3.3, Albumin 3.1 L 10/06/18 04:30: WBC 6.7, RBC 3.49 L, Hgb 11.6 L, Hct 34.5 L, MCV 98.6, MCH 33.3 H, MCHC 33.7, RDW 16.2 H, Plt Count 142, MPV 9.4, Neut # (Auto) 5.3, Lymph # (Auto) 0.8 L, [place] # (Auto) 0.6, Eos # (Auto) 0.0, Baso # (Auto) 0.0, Absolute Nucleated RBC 0.01, Nucleated RBC % 0.1 10/05/18 20:41: Blood Type Recheck A POSITIVE 10/05/18 20:41: PT 13.7 H, INR 1.2 10/05/18 19:02: Magnesium 1.9 10/05/18 19:02: Blood Type A POSITIVE, Antibody Screen NEGATIVE 10/05/18 19:02: Sodium 138, Potassium 2.5 L*, Chloride 102, Carbon Dioxide 25, Anion Gap 11.0, BUN 11, Creatinine 0.5, Estimated GFR (MDRD) 119, Glucose 107 H, Calcium 9.4, Total Bilirubin 0.8, AST 30, ALT 23, Alkaline Phosphatase 76, Total Protein 7.2, Albumin 3.7, Globulin 3.5, Albumin/Globulin Ratio 1.1, Lipase 32 10/05/18 19:02: WBC 10.5, RBC 3.81 L, Hgb 12.8, Hct 41.3, MCV 108.2 H, MCH 33.4 H, MCHC 30.9 L, RDW 17.3 H, Plt Count 163, MPV 10.2, Neut # (Auto) 8.8 H, Lymph # (Auto) 0.7 L, [place] # (Auto) 0.6, Eos # (Auto) 0.0, Baso # (Auto) 0.4 H, Absolute Nucleated RBC 0.01, Band Neuts % (Manual) Not Reportable, Abnorm Lymph % (Manual) Not Reportable, Nucleated RBC % 0.1, Neutrophils # (Manual) Not Reportable, Lymphocytes # (Manual) Not Reportable, Monocytes # (Manual) Not R eportable, Eosinophils # (Manual) Not Reportable, Basophils # (Manual) Not Reportable, Differential Comment MANUAL=AUTO DIFF, Manual Slide Review Indicated, Platelet Estimate NORMAL (130-450,000), Platelet Morphology NORMAL APPEARANCE, RBC Morph Micro Appear NORMAL APPEARANCE Fish Bones: 10/06/18 04:30 10/06/18 04:30 Home Medications and Allergies Home Medications: Ambulatory Orders Cholecalciferol (Vitamin D3) [Vitamin D3] 1 tab ORAL DAILY 10/05/18 Cilostazol [Pletal] 1 tab ORAL BID 10/05/18 Citalopram [CeleXA] 10 mg ORAL DAILY 10/05/18 Cyanocobalamin (Vitamin B-12) [Vitamin B-12] 1,000 mg ORAL DAILY 10/05/18 Escitalopram Oxalate [Lexapro] 1 tab ORAL DAILY 10/05/18 Nicotine [Nicoderm Cq] 14 mg 10/05/18 QUEtiapine [SEROquel] 25 mg ORAL DAILY 10/05/18 Senna [Senokot] 1 tab ORAL DAILY 10/05/18 risperiDONE [Risperdal] 1 tab ORAL DAILY 10/05/18 Active Medications Enoxaparin Sodium (Lovenox) 40 mg SUBQ DAILY [facility] Last Admin: 10/06/18 08:55 Dose: Not Given Hydralazine HCl (Apresoline Inj) 20 mg IVP Q4HR PRN PRN Reason: SBP>180 or DBP>110 Last Admin: 10/06/18 00:39 Dose: 20 mg Potassium Chloride/Dextrose/Sod Cl (D5.45ns W/20 Meq Kcl) 1,000 mls @ 100 mls/hr IV .Q10H [facility] Last Admin: 10/06/18 06:50 Dose: 100 mls/hr Acetaminophen (Ofirmev) 100 mls @ 400 mls/hr IV Q6HR PRN PRN Reason: Pain or T>100.4 Last Infusion: 10/06/18 12:31 Dose: Infused Cefazolin Sodium/Dextrose (Ancef 2 Gm/50 Ml) 2 gm in 50 mls @ 100 mls/hr IV ONCE [facility] Stop: 10/06/18 13:00 Morphine Sulfate (Morphine (Carpuject)) 1 mg IVP Q2HR PRN PRN Reason: PAIN Last Admin: 10/06/18 11:34 Dose: 1 mg Ondansetron HCl (Zofran Inj) 4 mg IVP Q6HR PRN PRN Reason: Nausea / Vomiting Polyethylene Glycol (Miralax) 17 gm PO DAILY [facility] Last Admin: 10/06/18 08:55 Dose: Not Given Sodium Chloride (Normal Saline Flush 0.9%) 10 ml IVP PRN PRN PRN Reason: NEEDED PER PROVIDER ORDERS Sodium Chloride (Normal Saline Flush 0.9%) 10 ml IVP 0100,0900,1700 [facility] Last Admin: 10/06/18 08:55 Dose: Not Given Cholecalciferol (Vitamin D3) [Vitamin D3] 1 tab ORAL DAILY 10/05/18 Cilostazol [Pletal] 1 tab ORAL BID 10/05/18 Citalopram [CeleXA] 10 mg ORAL DAILY 10/05/18 Cyanocobalamin (Vitamin B-12) [Vitamin B-12] 1,000 mg ORAL DAILY 10/05/18 Escitalopram Oxalate [Lexapro] 1 tab ORAL DAILY 10/05/18 Nicotine [Nicoderm Cq] 14 mg 10/05/18 QUEtiapine [SEROquel] 25 mg ORAL DAILY 10/05/18 Senna [Senokot] 1 tab ORAL DAILY 10/05/18 risperiDONE [Risperdal] 1 tab ORAL DAILY 10/05/18 Allergies/Adverse Reactions: Allergies Allergy/AdvReac Type Severity Reaction Status Date / Time aspirin Allergy Unknown Verified 10/05/18 17:43 lisinopril Allergy Unknown Verified 10/05/18 17:43 rivastigmine [From Exelon] Allergy Unknown Verified 10/05/18 17:43 Anes History & Medical History - Anesthetic History Anesthesia Complications: reports: No previous complications - Medical History Cardiovascular: reports: Valve disorder (critical aortic stenosis), Other Pulmonary: reports: None Gastrointestinal: reports: None Urinary: reports: None Neuro: reports: Dementia Musculoskeletal: reports: Osteoporosis Endocrine/Autoimmune: reports: None Blood Disorders: reports: None Skin: reports: None Smoking Status: Unknown if ever smoked Exam Dental: WNL Mouth Opening: Greater than 4 Fingerbreadths Mallampati classification: II Thyromental Distance: greater than 6 cm Respiratory: Lungs clear Cardiovascular: Regular rate, Normal S1, Normal S2, Other (systolic murmur) Cognitive Status: Dementia Plan Anesthesia Type: General Consent for Procedure(s) Verified and Reviewed: Yes Code Status: Do Not Attempt Resuscitation ASA classification: 3-Severe systemic disease Is this case an emergency?: No
[2018-10-06] MEDS ORDERED: BUPIVACAINE 0.25% PF 30 ML VIAL ONE (13:26)
[2018-10-06] MEDS ORDERED: LACTATED RINGERS 1,000 ML IV ONE ×2 (14:05→15:17)
[2018-10-06] MEDS ORDERED: BUPIVACAINE 0.25% PF 30 ML VIAL SUBQ ONE ×2 (14:36)
[2018-10-06] MEDS ORDERED: ONDANSETRON 4 MG/2 ML VIAL IVP ONE (14:40)
[2018-10-06] MEDS ORDERED: PROPOFOL 200 MG/20 ML VIAL IVP ONE (14:40)
[2018-10-06] MEDS ORDERED: SODIUM CHLORIDE 0.9% 10 ML VIAL IV ONE (14:40)
[2018-10-06] MEDS ORDERED: ePHEDrine 50 MG/ML VIAL IVP ONE (14:40)
[2018-10-06] MEDS ORDERED: ROCURONIUM 50 MG/5 ML VIAL IVP ONE (14:40)
[2018-10-06] MEDS ORDERED: fentaNYL 100 MCG/2 ML VIAL IVP ONE (14:40)
[2018-10-06] MEDS ORDERED: SODIUM CHLORIDE FLUSH 0.9% 10 ML SYRINGE IVP PRN (15:31)
[2018-10-06] MEDS ORDERED: ACETAMINOPHEN 1,000 MG/100 ML 100 ML IV PRN (15:31)
[2018-10-06] MEDS ORDERED: PROCHLORPERAZINE 10 MG/2 ML VIAL IVP PRN (15:31)
[2018-10-06] MEDS ORDERED: ACETAMINOPHEN 325 MG TABLET PO PRN (15:31)
[2018-10-06] MEDS ORDERED: MORPHINE 2 MG/ML CARPUJECT IVP PRN (15:31)
--- NOTE | 2018-10-06 15:31 | OPERATIVE REPORT ---
Operative Report - General Admit Date: 10/05/18 Procedure Date: 10/06/18 Planned Procedure: Cannulated screw fixation of left hip fracture Pre-Op Diagnosis: Minimally displaced left subcapital hip fracture Procedure Performed: Closed reduction and multiple cannulated screw fixation of left hip fracture Post Op Diagnosis: Same - Procedure Note Primary Surgeon: Veronica Yao MD Anesthesia Provider: Rigoberto Wallis CRNA Anesthesia Technique: General ET tube IV Fluids (mL): 1,000 Estimated Blood Loss (mL): 50 Complications: None
--- NOTE | 2018-10-06 15:36 | XRAY Report ---
Reason: fx left hip Procedure Date: 10/06/2018 Accession Number: [id number] / [id number] Procedure: FL - OR C-Arm Procedure CPT Code: FULL RESULT: EXAM: FLUOROSCOPIC GUIDANCE. EXAM DATE: 10/06/2018 03:17 PM. CLINICAL HISTORY: Fracture left hip. COMPARISON: None. FINDINGS: Gerber wires and up to 3 partially threaded cannulated screws are identified. IMPRESSION: Fluoroscopic guidance provided for left hip ORIF. Total fluoroscopy time: 0.7 minutes. Number of images: 3. RADIA
[2018-10-06] MEDS ORDERED: SODIUM CHLORIDE 0.9% 1,000 ML IV SCH ×2 (16:00→17:57)
--- NOTE | 2018-10-06 16:13 | OPERATIVE REPORT ---
DATE OF SERVICE: 10/06/2018 Physician: Rudy Yao MD PREOPERATIVE DIAGNOSIS: Minimally displaced left subcapital hip fracture. POSTOPERATIVE DIAGNOSIS: Minimally displaced left subcapital hip fracture. PROCEDURE PERFORMED: Closed reduction and multiple cannulated screw fixation of left hip fracture. SURGEON: Rudy Yao MD. ANESTHESIA: General. DESCRIPTION OF PROCEDURE: Patient was taken to the operating room on the afternoon of 10/06/2018, wh ere she was placed under general anesthetic without any complications. We then positioned her supine on the fracture table. Her right leg was then flexed at the hip and widely abducted and held in the well leg live. The fractured left extremity was then placed in an axial traction with the leg int ernally rotated about 20 degrees. Fluoroscopic views in AP and lateral projection showed a good redu ction of her fracture and the fracture to be out to length. We then prepped and draped the lateral aspect of the left hip in the usual fashion for our procedure. Making a small skin incision about the lateral aspect of the hip, we dissected down to the proximal lateral femoral cortex. This is where we inserted the first threaded-tip guidewire under power. Fl uoroscopic views in AP and lateral projection showed a good position of this guidepin and the proper depths within a few millimeters of the subchondral bone of the femoral head. Using our parallel pin guide, we then proceeded to insert 2 additional threaded tipped guidewires under power parallel to th e first pin. The 3 pin locations were in different quadrants. The first one was in the posterior in ferior quadrant. The second was in the anterior inferior quadrant, and finally, the last pin was in the posterior superior quadrant. Satisfied with the position of all 3 pins, we then used the direct measuring guide. We determined th at we would need three 7.3 mm cannulated short length screws of 85 mm length. Due to the amount of i mplants that we had, one of the 7.3 mm's was replaced with a 6.5 mm cannulated screw of the same mary th and the same threaded tip. We then proceeded to perforate the lateral femoral cortex at 3 of the screw sites using the cannulated drill and perforating the lateral femoral cortex over our inserted g uidepins. We then proceeded to follow with the selected screws. The superior inferior screw also re quired a washer, which was inserted along with the screw. There appeared to be good bony interface b etween the threaded portion of our screws and the bone. Fluoroscopic views in AP and lateral project ion showed the screws to be in satisfactory position. The fracture was impacted and reduced. We then removed our guidepins from the screws and obtained permanent films with the C-arm fluoroscopy machine, irrigated the wound thoroughly with saline, then closed the wound in layers using buried si mple stitches of 0 Vicryl to close the fascia sudhakar layer; buried simple stitches of 2-0 Vicryl to carisa roximate the subcutaneous tissue; skin shayy used to approximate the skin edge. A total of 10 mL o f 0.25% Marcaine with epinephrine was used for skin incision anesthesia. The wound was dressed. Marcia fisher transferred off the fracture table onto her bed and taken to recovery room in satisfactory condi tion. ESTIMATED BLOOD LOSS: 50 mL of blood. REPLACEMENT: 1000 mL crystalloid. INTRAOPERATIVE COMPLICATIONS: None. PLAN 1. The patient will be advanced to physical therapy as tolerated, weightbearing as tolerated on her left lower extremity. 2. We will keep her left leg in a knee immobilizer to minimize unattended out of bed activities by t his patient, as her mental status shows that she is somewhat demented and may not be aware of her con dition in the postoperative phase. TD: 10/06/2018 15:56
[2018-10-06] MEDS ORDERED: LABETALOL 20 MG/4 ML SYRINGE IVP ONE (16:19)
[2018-10-06] MEDS ORDERED: QUEtiapine 25 MG TABLET PO SCH (21:00)
[2018-10-06] MEDS: ceFAZolin 2 GM/50 ML 2 GM/50 ML BAG IV SCH (21:15)
[2018-10-07] MEDS: SODIUM CHLORIDE FLUSH 0.9% 10 ML SYRINGE IVP SCH ×3 (03:03→17:33)
[2018-10-07] MEDS ORDERED: QUEtiapine 25 MG TABLET PO PRN (04:48)
[2018-10-07] MEDS: ceFAZolin 2 GM/50 ML 2 GM/50 ML BAG IV SCH (05:56)
[2018-10-07] MEDS: HYDROcod/ACETAM 5/325 MG TABLET PO PRN ×3 (06:33→20:32)
[2018-10-07] MEDS ORDERED: NICOTINE 14 MG PATCH TOP SCH (08:00)
[2018-10-07] MEDS: POLYETHYLENE GLYCOL 3350 17 GM PACKET PO SCH (08:23)
[2018-10-07] MEDS: CYANOCOBALAMIN 500 MCG TABLET PO SCH (08:24)
[2018-10-07] MEDS: ENOXAPARIN 40 MG/0.4 ML SYRINGE SUBQ SCH (08:24)
[2018-10-07] MEDS: CHOLECALCIFEROL 1,000 UNIT TABLET PO SCH (08:24)
[2018-10-07] MEDS: CITALOPRAM 10 MG TABLET PO SCH (08:25)
[2018-10-07] MEDS: ESCITALOPRAM 10 MG TABLET PO SCH (08:37)
[2018-10-07] MEDS ORDERED: ENOXAPARIN 30 MG/0.3 ML SYRINGE SUBQ SCH (09:00)
--- NOTE | 2018-10-07 11:05 | PROVIDER PROGRESS NOTE ---
Subjective - Prog Note Date Prog Note Date: 10/07/18 Prog Note Time: 11:04 - Subjective Pt reports feeling: Improved (Mild hip pain. Up on floor with PT) Objective - Vital Signs/Intake & Output Vital Signs: Vital Signs x48h Temp Pulse Resp BP BP Pulse Ox 10/07/18 09:00 36.6 C 114 H 20 127/83 H 10/07/18 06:20 36.3 C L 108 H 20 179/91 H 92 Intake & Output: Intake & Output 10/04/18 10/05/18 10/06/18 10/07/18 23:59 23:59 23:59 23:59 Intake Total 200 2536.25 1705.75 Output Total 45 650 550 Balance 155 1886.25 1155.75 - Lab Results Fish Bones: 10/06/18 04:30 10/06/18 04:30 - Other Results/Comments Other Results/Comments: EXAM: Dressing intact. No pain with hip rotation. N/V ok distally Assessment/Plan - Problem List (1) Fracture of femoral neck, left Impression: stais post op PLAN: Mobilize as tolerated. Qualifiers: Encounter type: initial encounter Fracture type: closed Qualified Code(s): S72.002A - Fracture of unspecified part of neck of left femur, initial encounter for closed fracture
[2018-10-07] MEDS: risperiDONE 0.25 MG TABLET PO SCH (12:47)
[2018-10-07] MEDS: DOCUSATE SODIUM 250 MG CAPSULE PO SCH (12:47)
[2018-10-07] MEDS: SENNA 8.6 MG TABLET PO SCH (12:47)
--- NOTE | 2018-10-07 12:47 | PROVIDER PROGRESS NOTE ---
Subjective - Prog Note Date Prog Note Date: 10/07/18 Prog Note Time: 12:45 (seen ~ 8 am) - Subjective Subjective: Well I dont know about that (why in the hospital) "Pain is from a 1 to a 10" (not able to understand scale) Current Medications - Current Medications Current Medications: Active Medications Acetaminophen (Tylenol) 650 - 975 mg PO Q4HR PRN PRN Reason: PAIN Hydrocodone Bitart/Acetaminophen ([place] 5/325) 1 tab PO Q4HR PRN PRN Reason: PAIN Last Admin: 10/07/18 06:33 Dose: 1 tab Calcium Carbonate/Glycine (Tums) 500 mg PO BID [facility] Cholecalciferol (Vitamin D3) 1,000 unit PO QDBREAKFAST [facility] Last Admin: 10/07/18 08:24 Dose: 1,000 unit Citalopram Hydrobromide (Celexa) 10 mg PO QDBREAKFAST [facility] Last Admin: 10/07/18 08:25 Dose: 10 mg Cyanocobalamin (Vitamin B-12) 1,000 mcg PO QDBREAKFAST [facility] Last Admin: 10/07/18 08:24 Dose: 1,000 mcg Docusate Sodium (Colace 250mg Capsule) 250 - 500 mg PO DAILY [facility] Enoxaparin Sodium (Lovenox) 40 mg SUBQ DAILY [facility] Last Admin: 10/07/18 08:24 Dose: 40 mg Escitalopram Oxalate (Lexapro) 20 mg PO DAILY@0800 [facility] Last Admin: 10/07/18 08:37 Dose: 20 mg Acetaminophen (Ofirmev) 100 mls @ 400 mls/hr IV Q6HR PRN PRN Reason: PAIN Morphine Sulfate (Morphine (Carpuject)) 2 mg IVP Q2HR PRN PRN Reason: PAIN Last Admin: 10/06/18 20:00 Dose: 2 mg Nicotine (Nicoderm) 1 patch TOP DAILY@0800 [facility] Last Admin: 10/07/18 08:24 Dose: 1 patch Ondansetron HCl (Zofran Inj) 4 mg IVP Q6HR PRN PRN Reason: Nausea / Vomiting Polyethylene Glycol (Miralax) 17 gm PO DAILY [facility] Last Admin: 10/07/18 08:23 Dose: 17 gm Prochlorperazine Edisylate (Compazine Inj) 10 mg IVP Q6HR PRN PRN Reason: Nausea / Vomiting Quetiapine Fumarate (Seroquel) 12.5 mg PO QDBREAKFAST PRN PRN Reason: Agitation Quetiapine Fumarate (Seroquel) 25 mg PO QDDINNER [facility] Risperidone (Risperdal) 0.5 mg PO QDBREAKFAST [facility] Senna (Senokot) 8.6 - 17.2 mg PO DAILY [facility] Sodium Chloride (Normal Saline Flush 0.9%) 10 ml IVP 0100,0900,1700 [facility] Last Admin: 10/07/18 03:03 Dose: Not Given Sodium Chloride (Normal Saline Flush 0.9%) 10 ml IVP PRN PRN PRN Reason: NEEDED PER PROVIDER ORDERS Cholecalciferol (Vitamin D3) [Vitamin D3] 1,000 unit PO QDBREAKFAST 10/05/18 Cilostazol [Pletal] 100 mg PO BIDAC 10/05/18 Citalopram [CeleXA] 10 mg PO QDBREAKFAST 10/05/18 Cyanocobalamin (Vitamin B-12) [Vitamin B-12] 1,000 mg PO QDBREAKFAST 10/05/18 Escitalopram Oxalate [Lexapro] 20 mg PO DAILY@0800 10/05/18 Nicotine [Nicoderm Cq] 14 mg TOP DAILY@0800 10/05/18 QUEtiapine [SEROquel] 25 mg PO QDDINNER 10/05/18 Senna [Senokot] 8.6 mg PO QDBREAKFAST 10/05/18 risperiDONE [Risperdal] 0.5 mg PO QDBREAKFAST 10/05/18 QUEtiapine [SEROquel] 12.5 mg PO QDBREAKFAST PRN 10/06/18 Objective - Vital Signs/Intake & Output Reviewed Vital Signs: Yes Vital Signs: Vital Signs x48h Temp Pulse Resp BP BP Pulse Ox 10/07/18 09:00 36.6 C 114 H 20 127/83 H 10/07/18 06:20 36.3 C L 108 H 20 179/91 H 92 Intake & Output: Intake & Output 10/04/18 10/05/18 10/06/18 10/07/18 23:59 23:59 23:59 23:59 Intake Total 200 2536.25 1705.75 Output Total 45 650 550 Balance 155 1886.25 1155.75 - Objective General Appearance: positive: No acute distress (thin elderly female, slightly dishevelded hair, yellowed teeth), Alert, Other (not oriented, pleasantly confused, cooperative, started eating breakfast once I set it up for her) Eyes Bilateral: positive: PERRL, EOMI (resolvig ecchymosis Left orbit) Respiratory: positive: No respiratory distress, Breath sounds nml Cardiovascular: positive: Regular rate & rhythm, Systolic murmur (harsh mid peakig 3-4/6) Peripheral Pulses: 2+ Posterior tibialis (R), 2+ Posterior tibialis (L) Abdomen: positive: Nml bowel sounds, No distention. negative: Tenderness Skin: positive: Warm, Dry Extremities: negative: Pedal edema Neurologic/Psychiatric: positive: Disoriented to person, Disoriented to place, Disoriented to time, Other (cooperative, pleasantly confused) - Lab Results Fish Bones: 10/06/18 04:30 10/06/18 04:30 Assessment/Plan - Problem List (1) Fracture of femoral neck, left Impression: 1) Fracture of femoral neck, left Conclusion/Plan: s/p Fall (presumed mechanical) Day 1 s/p Cannulated screw fixation L hip fracture under General anesthesia/ EBL 50cc Doing well, despite a restless night, more calm this morning already seen by PT Anticipate SNF Thursday 2) Systolic murmur Murmur assessed preoperatively; Echo moderate to severe , mean pressure gradient 38 mmHg, aortic AoVarea 1.0cm squared REad as moderate to severe on initial read; but with AoVarea ~ 1 cm squared, doubt yet to the point of being cause of fall (doubt syncope)/ was not volume deplete on admit Will be cautious w/ volume, no acute lowering of BP, no peripheral vasodilating agents 4) Multiple falls Conclusion/Plan: ? Mechanical Fall balance/gait issue, ? impaired judgement ? Could conceivably be syncopal w/ , but as above, AoV area 1.0 cm, so not critical stenosis at this point; not new valve candidate As above PT/OT eval (5) Osteoporosis Conclusion/Plan: Calcium carbonate and Vit D started, will start fosamax on discharge as per hospital recs Qualifiers: (4) Dementia Conclusion/Plan: Very restless post op, but better this morning Resuming home dose (reconciled 10/07)Pharmacy has reconciled meds in d/w family; is on risperidone 0.5 mg daily in am, and quetiapine 25 mg po q pm Qualifiers: (5) Hypokalemia Conclusion/Plan: Unclear cause , not on thiazide or other diuretic repelted in ED with PO/IV. 2.5>> 3.3 Did not have post op labs ordered/ daily PO 20 meq recheck 10/08 (7) Hypertension Conclusion/Plan: NOt on antihyertensives on admission, on presentation most c/w pain due to acute injur Noindication for acute lowering/ recommendations are to not lower acutely w/ hydralazine IV in setting of no end organ damage (risk outweights benefit of acutely or overly lowering bhavik w/ new info on from echo) No indication to start beta amie perioperatively (and beta amie recommendations perio are to NOT start immediately periop >> D/c prn hydralazine and prn metoprolol iv GI prophylaxis; no indication in this patient d/c'd pepcid 10/06 Qualifiers: Encounter type: initial encounter Fracture type: closed Qualified Code(s): S72.002A - Fracture of unspecified part of neck of left femur, initial encounter for closed fracture
[2018-10-07] MEDS: CALCIUM CARBONATE CHEW 500 MG TABLET PO SCH ×2 (12:48→20:32)
[2018-10-07] MEDS ORDERED: POTASSIUM CHLORIDE 20 MEQ TABLET PO SCH (13:00)
[2018-10-07] MEDS ORDERED: IBUPROFEN 400 MG TABLET PO ONE (14:22)
[2018-10-07] MEDS ORDERED: QUEtiapine 25 MG TABLET PO SCH ×2 (17:00→21:00)
[2018-10-08] MEDS ORDERED: cloNIDine 0.1 MG TABLET PO PRN (04:03)
[2018-10-08] MEDS ORDERED: hydrALAZINE INJ 20 MG/ML VIAL IVP PRN (04:04)
[2018-10-08] MEDS: SODIUM CHLORIDE FLUSH 0.9% 10 ML SYRINGE IVP SCH ×2 (05:10→10:07)
[2018-10-08] MEDS: HYDROcod/ACETAM 5/325 MG TABLET PO PRN ×3 (05:50→13:38)
[2018-10-08 05:51] LABS: CALCIUM 8.7 mg/dL (8.5-10.3); CREATININE 0.4 mg/dL (0.4-1.0)
[2018-10-08] MEDS ORDERED: POTASSIUM CHLORIDE 20 MEQ TABLET PO ONE (07:43)
[2018-10-08] MEDS ORDERED: POTASSIUM CHLORIDE 20 MEQ TABLET PO SCH (08:00)
[2018-10-08] MEDS: risperiDONE 0.25 MG TABLET PO SCH (08:18)
[2018-10-08] MEDS: CYANOCOBALAMIN 500 MCG TABLET PO SCH (08:18)
[2018-10-08] MEDS: SENNA 8.6 MG TABLET PO SCH (08:19)
[2018-10-08] MEDS: ESCITALOPRAM 10 MG TABLET PO SCH (08:19)
[2018-10-08] MEDS: DOCUSATE SODIUM 250 MG CAPSULE PO SCH (08:19)
[2018-10-08] MEDS: CHOLECALCIFEROL 1,000 UNIT TABLET PO SCH (08:19)
[2018-10-08] MEDS: CITALOPRAM 10 MG TABLET PO SCH (08:19)
[2018-10-08] MEDS: ENOXAPARIN 40 MG/0.4 ML SYRINGE SUBQ SCH ×3 (08:19→13:12)
[2018-10-08] MEDS: POLYETHYLENE GLYCOL 3350 17 GM PACKET PO SCH (08:19)
[2018-10-08] MEDS: CALCIUM CARBONATE CHEW 500 MG TABLET PO SCH (08:19)
[2018-10-08 08:29] LABS: BASOPHILS # (AUTO) 0.1 10^3/uL (0.0-0.1); BASOPHILS % (AUTO) 1.5 %; EOSINOPHILS # (AUTO) 0.1 10^3/uL (0.0-0.7); EOSINOPHILS % (AUTO) 1.1 %; HGB - HEMOGLOBIN 12.9 g/dL (12.0-16.0); LYMPHOCYTES # (AUTO) 0.8 10^3/uL (1.5-3.5); LYMPHOCYTES % (AUTO) 12.2 %; MEAN CORPUSCULAR HGB CONC 33.1 g/dL (32.0-36.0); MEAN CORPUSCULAR VOLUME 99.8 fL (81.0-99.0); MEAN PLATELET VOLUME 9.2 fL (7.9-10.8); MONOCYTES # (AUTO) 0.5 10^3/uL (0.0-1.0); MONOCYTES % (AUTO) 8.3 %; NEUTROPHILS # (AUTO) 5.1 10^3/uL (1.5-6.6); NEUTROPHILS % (AUTO) 76.9 %; PLT - PLATELET COUNT 146 10^3/uL (130-450); RED BLOOD COUNT 3.91 10^6/uL (4.20-5.40); RED CELL DISTRIBUTION WIDTH 16.5 % (12.0-15.0); WHITE BLOOD COUNT 6.6 x10^3/uL (4.8-10.8)
[2018-10-08 08:58] LABS: PLATELET ESTIMATE, MANUAL NORMAL (130-450,000) (NORMAL); PLATELET MORPHOLOGY RARE GIANT PLATELETS (NORMAL); RBC MORPHOLOGY (MULTIPLE) 1+ ANISOCYTOSIS (NORMAL)
[2018-10-08] MEDS ORDERED: MAGNESIUM HYDROXIDE 2,400 MG/30 ML UDC PO ONE (09:00)
[2018-10-08] MEDS ORDERED: NICOTINE 21 MG PATCH TOP SCH (09:00)
[2018-10-08] MEDS ORDERED: METOPROLOL SUCCINATE 25 MG TABLET PO SCH (09:00)
--- NOTE | 2018-10-08 11:18 | PROVIDER PROGRESS NOTE ---
Subjective - Prog Note Date Prog Note Date: 10/08/18 Prog Note Time: 11:16 - Subjective Pt reports feeling: Improved (No complaints) Objective - Vital Signs/Intake & Output Vital Signs: Vital Signs x48h Temp Pulse Resp BP BP Pulse Ox 10/08/18 08:07 36.6 C 112 H 17 153/92 H 100 10/08/18 06:05 37.4 C 104 H 18 164/75 H 100 10/08/18 05:45 108 H 140/75 H 10/08/18 05:40 140/75 H 10/08/18 05:30 106 H 150/81 H 10/08/18 05:21 102 H 18 182/91 H 10/08/18 05:14 100 185/123 H Intake & Output: Intake & Output 10/05/18 10/06/18 10/07/18 10/08/18 23:59 23:59 23:59 23:59 Intake Total 200 2536.25 3185.75 100 Output Total 45 650 550 Balance 155 1886.25 2635.75 100 - Lab Results Fish Bones: 10/08/18 07:56 10/08/18 04:55 Other Labs: Lab Results x24hrs 10/08/18 10/08/18 Range/Units 07:56 04:55 WBC 6.6 (4.8-10.8) x10^3/uL RBC 3.91 L (4.20-5.40) 10^6/uL Hgb 12.9 (12.0-16.0) g/dL Hct 39.0 (37.0-47.0) % MCV 99.8 H (81.0-99.0) fL MCH 33.0 H (27.0-31.0) pg MCHC 33.1 (32.0-36.0) g/dL RDW 16.5 H (12.0-15.0) % Plt Count 146 (130-450) 10^3/uL MPV 9.2 (7.9-10.8) fL Neut # (Auto) 5.1 (1.5-6.6) 10^3/uL Lymph # (Auto) 0.8 L (1.5-3.5) 10^3/uL [place] # (Auto) 0.5 (0.0-1.0) 10^3/uL Eos # (Auto) 0.1 (0.0-0.7) 10^3/uL Baso # (Auto) 0.1 (0.0-0.1) 10^3/uL Absolute Nucleated RBC 0.00 x10^3/uL Nucleated RBC % 0.0 /100WBC Manual Slide Review Indicated Platelet Estimate NORMAL (130-450,000) (NORMAL) Platelet Morphology RARE GIANT PLATELETS (NORMAL) RBC Morph Micro Appear 1+ ANISOCYTOSIS (NORMAL) Sodium 137 (135-145) mmol/L Potassium 3.4 L (3.5-5.0) mmol/L Chloride 101 (101-111) mmol/L Carbon Dioxide 25 (21-32) mmol/L Anion Gap 11.0 (6-13) BUN 10 (6-20) mg/dL Creatinine 0.4 (0.4-1.0) mg/dL Estimated GFR (MDRD) 154 (>89) Glucose 89 (70-100) mg/dL Calcium 8.7 (8.5-10.3) mg/dL - Other Results/Comments Other Results/Comments: EXAM: Dressing intact; changed. No pain with hip motion. Up walking on floor. N/V ok distally Assessment/Plan - Problem List (1) Fracture of femoral neck, left Impression: Satis post op PLAN: To SNF. Continue walker ambulate - WBAT on left. Consider knee immobilizer on her left knee while in bed to minimize unattended out of bed ambulation. Lovenox x 2 weeks. RTC in 2 weeks for shayy out and new XR. Qualifiers: Encounter type: initial encounter Fracture type: closed Qualified Code(s): S72.002A - Fracture of unspecified part of neck of left femur, initial encounter for closed fracture
--- NOTE | 2018-10-08 11:19 | Discharge Plan ---
"Discharge Plan for SNF / [facility] - Discharge Plan And Transition Orders Disposition: 03 SNF DC/Xfer Condition: Poor Allergies and Adverse Reactions: Allergies Allergy/AdvReac Type Severity Reaction Status Date / Time aspirin Allergy Unknown Verified 10/05/18 17:43 lisinopril Allergy Unknown Verified 10/05/18 17:43 rivastigmine [From Exelon] Allergy Unknown Verified 10/05/18 17:43 - SNF / [facility] Transition Orders Admit to (Facility): [facility] Under the care of (Name): Dr. Mixon Discharge Diagnosis: left hip fracture, status post left hip repair, systolic murmur, multiple falls, osteoporosis, dementia, HTN, tachycardia Medicare Certification Statement: I certify that [facility] care is medically necessary on a continuing basis for any of the conditions for which she/he is receiving care during hospitalization. Notify PCP of admission and forward orders to primary provider for signature. Weight on admission and: Daily Call PCP immediately if weight increases by: 2 kg Other Notification Orders: Call PCP immediately if patient develops dyspnea, chest pain/tightness or edema. House Bowel Program: Yes Additional Bowel Program Orders: If no BM after 2 days, nurse may give M.O.M. 30ml PO PRN and/or ducolax Supp 1 OR and/or GOLDIE 250mg P.O., and/or senna 1-2 tabs PO. On day 3 nurse may give repeat above order until residents constipation is resolved. Annual Influenza Vaccine (between Apr 17 and November 14): Yes Two-step PPD per [facility] [phone] or approved exception documents: Yes Treatments & Other Orders: pt may followup admission provider after she is arrival to SNF. May check pt's potassium level in 5 days. pt may continue walker ambulate - WBAT on left. Pt may consider knee immobilizer on her left knee while in bed to minimize unattended out of bed ambulation. Pt may continue Lovenox for 2 weeks, and RTC in 2 weeks for shayy out and new XR Medication Orders: PLEASE REFER TO THE DISCHARGE MEDICATION LIST. Insulin Orders?: No - Medications New Prescriptions: HYDROcod/ACETAM 5/325 [[place] 5/325] 1 tab PO Q4HR PRN #20 tablet PRN Reason: Pain Alendronate [Fosamax] 70 mg PO Q7D #2 tablet Calcium Carbonate [Tums (Calcium Carbonate 500mg)] 500 mg PO BID #20 tablet Enoxaparin [Lovenox] 40 mg SUBQ DAILY #14 syringe Metoprolol Succinate [Toprol Xl] 25 mg PO DAILY #10 tablet Potassium Chloride 20 meq PO DAILY #5 tab.er.prt - Diet Type: Geriatric Texture: Regular Liquids: Thin May have monthly special meal: Yes - Therapies | Activity Therapy: Evaluation | Treat if indicated: PT, OT Rehabilitation Potential: Maximize functional status Activity: Activity as Tolerated Follow Up: pt may followup admission provider after she is arrival to SNF. May check pt's potassium level in 5 days. pt may continue walker ambulate - WBAT on left. Pt may consider knee immobilizer on her left knee while in bed to minimize unattended out of bed ambulation. Pt may continue Lovenox for 2 weeks, and RTC in 2 weeks for shayy out and new XR"
--- NOTE | 2018-10-08 11:56 | DISCHARGE SUMMARY ---
Discharge Summary Discharge Date: 10/08/18 Discharging Provider: ONTIVEROS Primary Care Provider: Jonathan Shields Condition at Discharge: Poor Discharge Disposition: 03 SNF DC/Xfer Discharge Facility Name: [facility] - DIAGNOSES Admission Diagnoses: 1) Fracture of femoral neck, left (2) Multiple falls (3) Dementia (4) Osteoporosis (5) Hypokalemia (6) Pre-op evaluation (7) Hypertensive urgency Discharge Diagnoses with Status of Each Condition: 1) Fracture of femoral neck, left status post left hip repair. pt can walk with nurse with walker at her room. pt tolerate the pain. pt is d/c to SNF continue PT/OT training. Lovenox is prescribed for ptls DVT prophylaxis 2) Systolic murmur stable and benign, no complaint. ECHO reveals normal heart function 4) Multiple falls d/c to SNF for continuing training (5) Osteoporosis pt is prescribed calcium, Vitamin D3 and Fosamax (4) Dementia stable as her baseline, followup PCP (5) Hypokalemia today K 3.4, pt is 2.5 potassium at admission, unknown etiology. pt is prescribed 20 meq daily, followup SNF monitor (7) Hypertension slight elevated BP, pt is prescribed Metoprolol (8) tachycardia Tele reveals pt's HR is between 94 99 today. pt is prescribed lower dosage 25 mg of metoprolol, followup PCP. - HPI History of Present Illness: refer from Dr. Mayer's HPI on 10/05/18 as the following: This is a very demented 78-year-old woman who presents from her home after reported fall with potential left hip injury. No history is available from the patient due to dementia. Per record she goes to a [facility] location. Patient had Head CT and neck imaging studies that were unremarkable. Apparently there are hx of multiple falls at home. Patient was found to have hypokalemia with no cramping involved, no hx infection per POA, or other symptoms. Xrays reveal an acute left femoral neck fracture. Dr. Yao consulted for possible left femoral neck fx repair. - HOSPITAL COURSE Hospital Course: pt was admission of left hip fracture. pt had left hip repaired by Dr. Yao. Pt is doing well after surgery. Pt can walk with walker at her room without pain complaint. Dr. Yao released pt to be d/c charged today. pt is accepted by SNF to [facility]. - ALLERGIES Allergies/Adverse Reactions: Allergies Allergy/AdvReac Type Severity Reaction Status Date / Time aspirin Allergy Unknown Verified 10/05/18 17:43 lisinopril Allergy Unknown Verified 10/05/18 17:43 rivastigmine [From Exelon] Allergy Unknown Verified 10/05/18 17:43 - MEDICATIONS Home Medications: Ambulatory Orders Medication Instructions Recorded Confirmed Cholecalciferol (Vitamin D3) 1,000 unit PO QDBREAKFAST 10/05/18 10/06/18 [Vitamin D3] Cilostazol [Pletal] 100 mg PO BIDAC 10/05/18 10/06/18 Citalopram [CeleXA] 10 mg PO QDBREAKFAST 10/05/18 10/06/18 Cyanocobalamin (Vitamin B-12) 1,000 mg PO QDBREAKFAST 10/05/18 10/06/18 [Vitamin B-12] Escitalopram Oxalate [Lexapro] 20 mg PO DAILY@0800 10/05/18 10/06/18 Nicotine [Nicoderm Cq] 14 mg TOP DAILY@0800 10/05/18 10/06/18 QUEtiapine [SEROquel] 25 mg PO QDDINNER 10/05/18 10/06/18 Senna [Senokot] 8.6 mg PO QDBREAKFAST 10/05/18 10/06/18 risperiDONE [Risperdal] 0.5 mg PO QDBREAKFAST 10/05/18 10/06/18 QUEtiapine [SEROquel] 12.5 mg PO QDBREAKFAST PRN 10/06/18 10/06/18 Alendronate [Fosamax] 70 mg PO Q7D #2 tablet 10/08/18 Calcium Carbonate [Tums (Calcium 500 mg PO BID #20 tablet 10/08/18 Carbonate 500mg)] Enoxaparin [Lovenox] 40 mg SUBQ DAILY #14 syringe 10/08/18 HYDROcod/ACETAM 5/325 [[place] 5/325] 1 tab PO Q4HR PRN #20 tablet 10/08/18 Metoprolol Succinate [Toprol Xl] 25 mg PO DAILY #10 tablet 10/08/18 Potassium Chloride 20 meq PO DAILY #5 tab.er.prt 10/08/18 - PHYSICAL EXAM AT DISCHARGE General Appearance: positive: No acute distress, Alert. negative: Lethargic Eyes Bilateral: positive: Normal inspection, PERRL, No lid inflammation, Conjunctivae nml ENT: positive: ENT inspection nml, Pharynx nml, No signs of dehydration. negative: Purulent nasal drainage, Pharyngeal erythema, Oral lesions Neck: positive: Nml inspection, Thyroid nml, No JVD, Trachea midline. negative: Thyromegaly, Lymphadenopathy (R), Lymphadenopathy (L), Stiff neck, Swe lling/bruising, Tracheal deviation Respiratory: positive: Chest non-tender, No respiratory distress, Breath sounds nml. negative: Wheezes, Rales, Rhonchi Cardiovascular: positive: Regular rate & rhythm, No gallop, Systolic murmur. negative: Irregularly irregular, Extrasystoles, Tachycardia, Bradycardia, JVD present, Diastolic murmur Peripheral Pulses: positive: 2+ Abdomen: positive: Non-tender, No organomegaly, Nml bowel sounds, No distention. negative: Tenderness, Guarding, Rebound Back: positive: Nml inspection. negative: CVA tenderness (R), CVA tenderness (L) Skin: positive: Color nml, No rash, Warm, Dry. negative: Cyanosis, Diaphoresis, Pallor, Skin rash Extremities: positive: Non-tender, Nml appearance. negative: Pedal edema, Calf tenderness, Joint swelling, Maribeth's sign/cords, Other Neurologic/Psychiatric: negative: Weakness, Sensory loss, Facial droop, Slurred/abnml speech, Depressed mood/affect - LABS Result Diagrams: 10/08/18 07:56 10/08/18 04:55 - FOLLOW UP Follow Up: pt may followup admission provider after she is arrival to SNF. May check pt's potassium level in 5 days. pt may continue walker ambulate - WBAT on left. Pt may consider knee immobilizer on her left knee while in bed to minimize unattended out of bed ambulation. Pt may continue Lovenox for 2 weeks, and RTC in 2 weeks for shayy out and new XR - TIME SPENT Time Spent in Discharge (Minutes): 50
[2018-10-08] MEDS ORDERED: BISACODYL 10 MG SUPP PR ONE (13:19)
[2018-10-08 13:54] VITALS: BP 160/90
== END 2018-10-08 14:43 | DRG 482 ==
LOC: EDUNIT# → ED 17:20 → MS3 20:06
PROVIDERS: ADMIT Family Medicine; ATTEND Nurse Practitioner Gerontology
PROC: 0QS734Z Reposition Left Upper Femur with Internal Fixation Device, Percutaneous Approach (ICD-10-PCS; principal; 2018-10-06 12:30)
DX: S72.012A Unspecified intracapsular fracture of left femur, initial encounter for closed fracture (principal); I35.8 Other nonrheumatic aortic valve disorders; M81.0 Age-related osteoporosis without current pathological fracture; I16.0 Hypertensive urgency; I10 Essential (primary) hypertension; E87.6 Hypokalemia; G30.9 Alzheimer's disease, unspecified; F02.80 Dementia in other diseases classified elsewhere, unspecified severity, without behavioral disturbance, psychotic disturbance, mood disturbance, and anxiety; R00.0 Tachycardia, unspecified; W19.XXXA Unspecified fall, initial encounter; Z91.81 History of falling
CPT/HCPCS: 36415; 70450; 71045; 72125; 73521; 80048; 80053; 80069; 82652; 83690; 83735; 85025; 85610; 86850; 86900; 86901; 93306; 96374; 99283; 99285

== ENCOUNTER 2018-11-08 11:53 | Outpatient (CLI) | payer MEDICARE, OTHER | END 2018-11-08 11:54 | disposition short-term general hospital (02) | LOC: EMS 11:53 | PROVIDERS: ATTEND Surgery | DX: M25.552 Pain in left hip (principal); S00.83XA Contusion of other part of head, initial encounter; S00.12XA Contusion of left eyelid and periocular area, initial encounter; S00.11XA Contusion of right eyelid and periocular area, initial encounter; W06.XXXA Fall from bed, initial encounter; Y92.009 Unspecified place in unspecified non-institutional (private) residence as the place of occurrence of the external cause | CPT/HCPCS: A0425; A0429 ==